=== PATIENT | female | born 1990 | race Caucasian/White ===

== ENCOUNTER 2016-10-23 11:15 | Emergency (ER) | payer OTHER ==
--- NOTE | ~2016-10-23 | US134 ---
[facility] A Service of [facility] & [facility] RADIOLOGY TEXT RESULTS PATIENT: LEVON MCGEE LOCATION: [facility] : [birth year] UNIT #: [id number] AGE: [address]: Flip Ugarte MD SEX: F ORDER DR: [id number] [facility] [address] [place], [place] [address] [id number] E MR#: [id number] Acc #: [id number] NAME: LEVON MCGEE : 1990 SEX: F STUDY DATE/TIME: 10/23/2016 14:37 UNIT: [facility] ROOM: STUDY DESCRIPTION: US Transvaginal Attending Physician: Flip Ugarte M.D. Ordering Physician: Flip Ugarte M.D. Primary Care Physician: Primary Care Physician No MEDICAL IMAGING REPORT This report is preliminary unless electronic signature is present EXAM Pelvic ultrasound, transvaginal technique, 10/23/2016 INDICATIONS 26-year-old female with pain since this morning, generalized lower abdominal pain. Beta hCG 6669. TECHNIQUE Sonographic imaging of the pelvis was performed. No comparisons. Exam was performed transvaginally only. FINDINGS Examination performed initially at 1437 hours. Additional ultrasound images were obtained at 1639 hours. The uterus measures approximately 9.4 x 4.4 x 6.1 cm. Endometrial stripe measures approximately 7-8 mm. In the lower uterine segment, intimately associated with the endometrial canal, there is a gestational sac and a pole. The pole measures about 2.3 cm, for an estimated gestational age of 9 weeks and 0 days. No yolk sac identified. No heart tones identified with color flow imaging. Imaging features are most characteristic of demise. Neither ovary was identified. Trace free fluid in the pelvic cul-de-sac. Technologist also indicated no movement was identified under real-time surveillance. IMPRESSION 1. Findings called to Dr. Ugarte at the time of this dictation. Imaging features are most characteristic of demise. There is a low-lying gestational sac with a pole but there is no yolk sac, and no heart tones could be identified by the technologist, and reportedly no movement was identified by the technologist under real-time observation. 2. Neither ovary could be identified. [facility] A Service of [facility] & [facility] RADIOLOGY TEXT RESULTS PATIENT: LEVON MCGEE LOCATION: [facility] : [birth year] UNIT #: [id number] AGE: [address]: Flip Ugarte MD SEX: F ORDER DR: 3. Trace amount of free fluid in the pelvis. STAT * RESULT Dictated by... Ronaldo Canales M.D. THIS IS AN ELECTRONICALLY VERIFIED REPORT Ronaldo Canales M.D. at 10/23/2016 8:41 PM LUIS FERNANDO/tomasz TD: 10/23/2016 17:21 JOB #: [id number] MEDICAL IMAGING REPORT Page 1 of 1 COPY
[2016-10-23 13:18] LABS: BASOPHIL% 0.3 % (0-2.5); EOSINOPHIL# 0.1 X10e3 (0-0.7); EOSINOPHIL% 0.7 % (0.0-7.0); HEMATOCRIT 39.9 % (35.0-45.0); HEMOGLOBIN 13.1 gm/dL (12.0-16.0); LYMPHOCYTE# 1.4 X10e3 (1.0-3.5); LYMPHOCYTE% 10.8 % (17.0-45.0); MEAN CELL VOLUME 86.8 FL (83-96); MEAN CORPUSCULAR HEMOGLOBIN 28.5 PG (28-34); MEAN CORPUSCULAR HGB CONC 32.8 g/dL (30-36); MEAN PLATELET VOLUME 8.2 FL (6.5-11.5); MONOCYTE# 0.4 X10e3 (0-1.0); MONOCYTE% 3.5 % (3.0-12.0); NEUTROPHIL# 10.8 X10e3 (1.5-7.1); NEUTROPHIL% 84.7 % (40-75); PLATELET COUNT 242 X10e3 (140-420); WHITE BLOOD COUNT 12.8 X10e3 (4.0-10.5)
[2016-10-23 13:19] LABS: DIFF IND NO
[2016-10-23 13:27] LABS: URINE SOURCE CLEAN CATCH
[2016-10-23 13:41] LABS: ALBUMIN SERUM 3.7 g/dL (3.5-5.0); BILIRUBIN, DIRECT 0.1 mg/dL (0.0-0.2); BILIRUBIN,INDIRECT 0.5 mg/dL (0.0-0.9); BILIRUBIN,TOTAL 0.6 mg/dL (0.2-2.0); BUN/CREATININE RATIO 12.85; CALCIUM SERUM 8.8 mg/dL (8.4-10.2); CREATININE SERUM 0.7 mg/dL (0.6-1.4); GLOM FILT RATE Estimated 118.7 mL/min (>60); POTASSIUM 3.7 mmol/L (3.5-5.1); PROTEIN TOTAL SERUM 7.3 g/dL (6.0-8.3)
[2016-10-23 13:47] LABS: URINE APPEARANCE SL CLOUDY; URINE COLOR RED
[2016-10-23 13:48] LABS: URINE BILIRUBIN NEG (NEG); URINE BLOOD 4+ (NEG); URINE GLUCOSE NORM (NEG); URINE KETONE 3+ (NEG); URINE LEUKOCYTE ESTERASE 1+ (NEG); URINE NITRATE NEG (NEG); URINE PH 6.5 (5-8); URINE PROTEIN 1+ (NEG); URINE UROBILINOGEN NORM (NEG)
[2016-10-23 13:52] LABS: CULTURE INDICATED? NO; URBCS1 AUWI INNUM /[HPF] (0-2); URINE SQUAMOUS EPITHELIAL CELL FEW /[HPF]; UWBCS1 AUWI 0-2 (0-5)
== END 2016-10-23 20:01 | disposition home or self-care (01) ==
LOC: CED 11:15
PROVIDERS: Emergency Medicine
DX: O02.1 Missed abortion (principal); Z3A.09 9 weeks gestation of pregnancy
CPT/HCPCS: 36415; 76830; 80048; 80076; 81003; 82150; 83690; 84702; 84703; 85025; 86850; 86900; 86901; 96372; 99284; J1885; J2790